=== PATIENT | female | born 1960 | race Caucasian/White ===

== ENCOUNTER → 2021-02-02 10:02 | Outpatient (CLI) | payer BC, SELFPAY ==
[2021-02-02 11:51] LABS: Absolute Neutrophil Count 2.6 X10^3/uL (2.0-7.7); Basophil# 0.05 X10^3/uL; Basophil% 0.9 % (0-1); Eosinophil# 0.12 X10^3/uL; Eosinophils% 2.2 % (0-5); Hemoglobin 13.6 g/dL (12.0-15.0); Lymphocyte % 38.5 % (19-41); Mean Corp Hgb Conc 32.4 g/dL (32-36); Mean Corpuscular Hgb 29.8 pg (27.0-32.0); Mean Corpuscular Volume 91.9 fL (81-99); Mean Platelet Vol. 12.2 fl (6.2-12.0); Monocyte# 0.58 X10^3/uL; Monocyte% 10.6 % (0-10); NRBC Flagged by Analyzer 0 % (0-5); Neutrophil % 47.6 % (47-70); Platelet Count 230 K/mm3 (150-450); RBC Distribution Width CV 12.4 % (11.6-14.6); RBC Distribution Width SD 42.1 fl (35.1-43.9); Red Blood Count 4.57 M/mm3 (4.2-5.4); White Blood Count 5.5 K/mm3 (4.4-11.0)
[2021-02-02 12:18] LABS: Anion Gap 5 (5-15); BUN 18 mg/dL (7-18); BUN/Creat Ratio 19.7 RATIO (10-20); Calcium,Total 9.5 mg/dL (8.5-10.1); Chloride 109 mmol/L (98-107); Cholesterol 184 mg/dL (200); Creatinine, Serum 0.92 mg/dL (0.55-1.02); EST Glomerular Filtration Rate 67 mL/min (>60); Est Glom Filt Rate - Afr Amer 81 mL/min (>60); Glucose 100 mg/dL (74-106); High Density Lipoprotein 59 mg/dL; Potassium 4.4 mmol/L (3.5-5.1); Sodium Level 139 mmol/L (136-145); Triglycerides 122 mg/dL; Very Low Density Lipoprotein 24 mg/dL (5-40)
[2021-02-02 12:28] LABS: Valproic Acid (Depakene) Level 77 ug/mL (50-100)
[2021-02-02 12:29] LABS: Vitamin D,25 Hydroxy 50.2 ng/mL
== END ==
PROVIDERS: PCP Family Medicine; Referring Provider Family Medicine; Visit Provider Family Medicine
DX: Z00.00 Encounter for general adult medical examination without abnormal findings (principal); G40.909 Epilepsy, unspecified, not intractable, without status epilepticus
CPT/HCPCS: 36415; 80048; 80061; 80164; 82306; 84443; 85025

== ENCOUNTER → 2021-03-15 16:27 | Outpatient (CLI) | payer BC, SELFPAY ==
[2021-03-15 14:33] VITALS: BMI 24.3
[2021-03-22 11:00] LABS: HPV APTIMA, High Risk Negative (Negative)
== END ==
PROVIDERS: PCP Family Medicine; Referring Provider Obstetrics & Gynecology; Visit Provider Obstetrics & Gynecology
DX: Z12.4 Encounter for screening for malignant neoplasm of cervix (principal)
CPT/HCPCS: 87624; 88175; G0145

== ENCOUNTER → 2021-07-09 15:59 | Outpatient (CLI) | payer BC, SELFPAY ==
[2021-07-09 18:09] LABS: Thyroid Stim Hormone (TSH) 5.29 uIU/mL (0.358-3.74)
== END ==
PROVIDERS: PCP Family Medicine; Visit Provider Family Medicine
DX: E03.9 Hypothyroidism, unspecified (principal)
CPT/HCPCS: 36415; 84443

== ENCOUNTER → 2022-03-05 | Outpatient (CLI) | payer BC, SELFPAY ==
[2022-03-05 18:13] LABS: Absolute Lymphocyte Count 2.35 X10^3/uL (0.83-4.51); Absolute Neutrophil Count 2.4 X10^3/uL (2.0-7.7); Basophil# 0.05 X10^3/uL; Basophil% 0.9 % (0-1); Eosinophils% 1.8 % (0-5); Hematocrit 37.5 % (37-47); Hemoglobin 12.5 g/dL (12.0-15.0); Lymphocyte # 2.35 X10^3/ul (0.83-4.51); Lymphocyte % 41.4 % (19-41); Mean Corp Hgb Conc 33.3 g/dL (32-36); Mean Corpuscular Volume 89.9 fL (81-99); Monocyte# 0.76 X10^3/uL; Monocyte% 13.4 % (0-10); NRBC Flagged by Analyzer 0 % (0-5); Neutrophil # 2.39 X10^3/uL (2.7-7.7); Neutrophil % 42.1 % (47-70); Platelet Count 160 K/mm3 (150-450); RBC Distribution Width CV 12.7 % (11.6-14.6); RBC Distribution Width SD 41.9 fl (35.1-43.9); Red Blood Count 4.17 M/mm3 (4.2-5.4); White Blood Count 5.7 K/mm3 (4.4-11.0)
[2022-03-05 18:27] LABS: Valproic Acid (Depakene) Level 54 ug/mL (50-100)
[2022-03-05 18:48] LABS: ALB/GLOB Ratio 0.9 RATIO (0.9-2.4); AST(SGOT) 16 U/L (15-37); Alanine Aminotransfer ALT/SGPT 14 U/L (13-56); Albumin, Serum 3.2 g/dL (3.2-5.0); Alkaline Phosphatase 67 U/L (45-117); Anion Gap 9 (5-15); BUN 26 mg/dL (7-18); BUN/Creat Ratio 23.2 RATIO (10-20); Calcium,Total 9.1 mg/dL (8.5-10.1); Chloride 105 mmol/L (98-107); Creatinine, Serum 1.12 mg/dL (0.55-1.02); EST Glomerular Filtration Rate 53 mL/min (>60); Est Glom Filt Rate - Afr Amer 64 mL/min (>60); Free T3 2.2 pg/mL (2.18-3.98); Globulin 3.6 g/dL (2.2-4.2); Glucose 85 mg/dL (74-106); Potassium 3.8 mmol/L (3.5-5.1); Protein, Total 6.8 g/dL (6.4-8.2); Sodium Level 139 mmol/L (136-145); Thyroid Stim Hormone (TSH) 2.91 uIU/mL (0.358-3.74)
== END | disposition home or self-care (01) ==
LOC: MTLAB 15:04
PROVIDERS: PCP Family Medicine; Referring Provider Family Medicine; Visit Provider Family Medicine
DX: E03.9 Hypothyroidism, unspecified (principal); Z51.81 Encounter for therapeutic drug level monitoring
CPT/HCPCS: 36415; 80053; 80164; 84439; 84443; 84481; 85025

== ENCOUNTER → 2022-04-29 | Outpatient (CLI) | payer BC, SELFPAY ==
--- NOTE | 2022-04-29 15:30 | RAD_ITS ---
STUDY: X-RAY - ABDOMEN/PELVIS REASON FOR EXAM: Female, 62 years old. PAIN,BLOATING TECHNIQUE: Single AP view of the abdomen / pelvis. COMPARISON: None. FINDINGS: Normal visualized lung bases. There is an unremarkable bowel gas pattern. The visualized liver, spleen and kidneys are grossly normal in size and morphology. Normal soft tissue structures. Normal visualized osseous structures. RAD/Abdomen Single View IMPRESSION: Normal x-ray examination of the abdomen and pelvis. Electronically Signed: Augustine Long MD at 15:55 EDT ,
[2022-04-29 18:06] LABS: Absolute Lymphocyte Count 2.14 X10^3/uL (0.83-4.51); Absolute Neutrophil Count 2.6 X10^3/uL (2.0-7.7); Basophil# 0.04 X10^3/uL; Basophil% 0.7 % (0-1); Eosinophils% 1.8 % (0-5); Hematocrit 39.7 % (37-47); Hemoglobin 12.8 g/dL (12.0-15.0); Lymphocyte # 2.14 X10^3/ul (0.83-4.51); Lymphocyte % 38.4 % (19-41); Mean Corp Hgb Conc 32.2 g/dL (32-36); Mean Corpuscular Hgb 29.6 pg (27.0-32.0); Mean Corpuscular Volume 91.7 fL (81-99); Monocyte# 0.66 X10^3/uL; Monocyte% 11.8 % (0-10); NRBC Flagged by Analyzer 0 % (0-5); Neutrophil # 2.62 X10^3/uL (2.7-7.7); Neutrophil % 47.1 % (47-70); Platelet Count 200 K/mm3 (150-450); RBC Distribution Width CV 12.3 % (11.6-14.6); RBC Distribution Width SD 41.3 fl (35.1-43.9); Red Blood Count 4.33 M/mm3 (4.2-5.4); White Blood Count 5.6 K/mm3 (4.4-11.0)
[2022-04-29 18:44] LABS: ALB/GLOB Ratio 0.8 RATIO (0.9-2.4); AST(SGOT) 17 U/L (15-37); Alanine Aminotransfer ALT/SGPT 18 U/L (13-56); Alkaline Phosphatase 56 U/L (45-117); Anion Gap 7 (5-15); BUN 23 mg/dL (7-18); BUN/Creat Ratio 21.9 RATIO (10-20); CRP < 2.90 mg/L (0.0-3.0); Calcium,Total 9.3 mg/dL (8.5-10.1); Chloride 103 mmol/L (98-107); Creatinine, Serum 1.05 mg/dL (0.55-1.02); EST Glomerular Filtration Rate 57 mL/min (>60); Est Glom Filt Rate - Afr Amer 69 mL/min (>60); Globulin 3.9 g/dL (2.2-4.2); Glucose 82 mg/dL (74-106); Lipase 139 U/L (73-393); Protein, Total 6.9 g/dL (6.4-8.2); Sodium Level 138 mmol/L (136-145)
== END | disposition home or self-care (01) ==
PROVIDERS: PCP Family Medicine; Referring Provider Family Medicine; Visit Provider Family Medicine
DX: R10.9 Unspecified abdominal pain (principal); R14.0 Abdominal distension (gaseous); R19.7 Diarrhea, unspecified; R19.4 Change in bowel habit
CPT/HCPCS: 36415; 74018; 80053; 83690; 85025; 86140

== ENCOUNTER → 2022-06-21 | Outpatient (CLI) | payer BC, SELFPAY ==
--- NOTE | 2022-06-21 14:43 | CT_ITS ---
STUDY: CT ABDOMEN AND PELVIS WITH CONTRAST REASON FOR EXAM: Female, 62 years old. PAIN AND BLOATING RADIATION DOSAGE (If Supplied By Facility): CTDIvol = ( 8.56 ) mGy, DLP = ( 389.87 ) mGycm TECHNIQUE: Transaxial images were obtained from the dome of the diaphragm to the symphysis pubis without oral contrast. Oral and amp; IV Gastrografin and amp; 100mL Isovue-370 was administered. Sagittal and coronal images were reconstructed. Individualized dose optimization techniques were used for this CT. COMPARISON: None. FINDINGS: The visualized lung bases are unremarkable. The visualized portions of the heart are within normal limits. Normal liver. Thick-walled gallbladder without calcified stones.. Normal spleen. Normal pancreas. Normal bilateral adrenal glands. Normal right kidney. Normal left kidney. Normal visualized stomach. Normal small intestine. Normal colon. The appendix is visualized and appears normal. Minor atherosclerotic changes of the aorta.. Normal inferior vena cava. Normal retroperitoneum. There is massive ascites noted throughout the abdomen and pelvis with stranding in the omental fat in the right upper abdomen possibly representing peritoneal carcinomatosis. Normal urinary bladder. There is a very large heterogeneous appearing complex cystic mass in the pelvis sitting above the dome of the bladder measuring approximately 10 x 12 x 9.3 cm which is not contiguous with uterus. The left adnexal region appears unremarkable. Normal abdominal wall. Lumbar spine demonstrates mild degenerative change. 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 Clinical correlation is recommended Electronically Signed: Daniel Kerr MD at 17:42 EDT ,
[2022-06-21 15:10] LABS: CREATININE FINGERSTICK 1.1 mg/dL (0.55-1.02)
== END | disposition home or self-care (01) ==
LOC: CT 14:40
PROVIDERS: PCP Family Medicine; Referring Provider Family Medicine; Visit Provider Family Medicine
DX: R10.9 Unspecified abdominal pain (principal); R14.0 Abdominal distension (gaseous)
CPT/HCPCS: 74177; Q9967

== ENCOUNTER → 2023-08-25 | Outpatient (CLI) | payer BC, SELFPAY ==
[2023-08-25 18:45] LABS: CRP < 2.90 mg/L (0.0-3.0); Free T3 2.7 pg/mL (2.18-3.98); T4 Free Direct 1.32 ng/dL (0.76-1.46)
== END | disposition home or self-care (01) ==
PROVIDERS: PCP Family Medicine; Visit Provider Family Medicine
DX: E03.9 Hypothyroidism, unspecified (principal); M25.50 Pain in unspecified joint
CPT/HCPCS: 36415; 84439; 84443; 84481; 86140

== ENCOUNTER → 2023-09-19 | Outpatient (CLI) | payer BC, SELFPAY ==
--- NOTE | 2023-09-19 16:44 | RAD_ITS ---
INDICATION: pain EXAMINATION/TECHNIQUE: X-RAY - LEFT XR Shoulder Min 2 Views 4 VIEWS COMPARISON: No relevant prior comparison study available FINDINGS: SOFT TISSUES: No soft tissue swelling or gas. No radiopaque foreign body. BONES/JOINTS: No acute fracture or subluxation.. Normal alignment. Minimal degenerative changes of the glenohumeral and acromioclavicular joints.. No sclerotic or destructive changes observed. RAD/Shoulder min 2 Views IMPRESSION: No acute abnormalities.. Minimal degenerative changes of the glenohumeral and AC joint. Electronically Signed: Jose Luis Dougherty MD at 16:54 EST ,
--- OUTSIDE RECORDS SUMMARY | 2023-09-19 17:20 | XMS RPT_ITS | CCD ---
Author Name Unknown Address [address] [facility] [address] [place] [address] Organization [facility] Care Team Providers Care Desktop Support Consultant Name Role Phone Rennyjudi Cristina Lulu Primary Care Provider [phone] Polepoli-De, Nallely Attending Unavailable No, PCP Primary Care Unavailable PROVIDER, UNKNOWN Referring Unavailable Polen-De, Nallely Attending Unavailable No, PCP Primary Care Unavailable PROVIDER, UNKNOWN Referring Unavailable No, PCP Primary Care Unavailable PROVIDER, UNKNOWN Referring Unavailable Polen-De, Nallely Attending Unavailable POLEN-DE, NALLELY JUÁREZ Attending Unavaila ble POLEN-DE, NALLELY JUÁREZ Attending Unavaila ble POLEN-DE, NALLELY JUÁREZ Admitting Unavaila ble POLEN-DE, NALLELY JUÁREZ Attending Unavaila ble GRIFFIN JIMENEZ Referring Unavailable POLEN-DE, NALLELY JUÁREZ Referring Unavaila ble Medications Current Medications Medication Drug Class(es) Dates Sig (Normalized) Sig (Original) dicyclomine hydrochloride 20 mg oral tablet (2 sources) Anticholinergic Start: 04-30-2022 take 1 tablet by mouth four times daily as needed dicyclomine (BENTYL) 20 MG tablet TAKE 1 TABLET BY MOUTH 4 TIMES DAILY 30 MINUTES BEFORE EATING NEEDED 0 04/30/2022 Active levothyroxine sodium 0.075 mg oral tablet (6 sources) l-Thyroxine Start: 06-26-2022 take 1 tablet by mouth once daily levothyroxine (SYNTHROID) 75 MCG tablet TAKE 1 TABLET BY MOUTH ONCE DAILY 0 06/26/2022 Active Completed/Discontinued Medications Medication Drug Class(es) Dates Sig (Normalized) Sig (Original) calcium carbonate 1500 mg / cholecalciferol 200 unt oral tablet (3 sources) Vitamin D Start: 08-14-2007 calcium carbonate/vitamin d3(CALCARB 600 WITH VITAMIN D 600 MG (1,500)-200 UNIT TAB) Take one(1) tablet two(2) times daily. 0 08/14/2007 Active Problems Active Problems Problem Classification Problem Date Documented Da te Episodic/Chronic Anxiety disorders (3 sources) Anxiety; Translations: [Anxiety disorder, unspecified] Onset: 06-27-2012 06-27-2012 Chronic Disorders usually diagnosed in infancy, childhood, or adolescence (3 sources) Tic disorder; Translations: [Tic disorder, unspecified] Onset: 06-27-2012 06-27-2012 Chronic Headache; including migraine (3 sources) Muscular headache ; Translations: [Tension-type headache, unspecified, not intractable] Onset: 11-24-2015 11-24-2015 Chronic Mood disorders (3 sources) Depressive disorder; Translations: [Depression] Onset: 06-27-2012 06-27-2012 Chronic Osteoarthritis (3 sources) Degenerative joint disease of hand; Translations: [Unilateral primary osteoarthritis of first carpometacarpal joint, left hand] Onset: 02-18-2020 02-18-2020 Chronic Other gastrointestinal disorders (2 sources) Pelvic mass; Translations: [Intra-abdominal and pelvic swelling, mass and lump, unspecified site] Episodic Other gastrointestinal disorders (4 sources) Intra-abdominal and pelvic swelling, mass and lump, unspecified site; Translations: [Intra-abd and pelvic swelling, mass and lump, unsp site] Onset: 07-01-2022 Episodic Other gastrointestinal disorders (2 sources) Other ascites; Translations: [Other ascites] Onset: 07-17-2022 Episodic Other nervous system disorders (2 sources) Other acute postprocedural pain; Translations: [Other acute postprocedural pain] Onset: 07-24-2022 Episodic Secondary malignancies (4 sources) Malignant ascites; Translations: [Malignant ascites] Onset: 07-01-2022 Chronic Spondylosis; intervertebral disc disorders; other back problems (3 sources) Degeneration of lumbar intervertebral disc; Translations: [Other intervertebral disc degeneration, lumbar region] Onset: 02-18-2020 02-18-2020 Chronic Unclassified (2 sources) Post-op Visit; Translations: [Post-op Visit] Onset: 08-12-2022 Past or Other Problems Problem Classification Problem Date Documented Da te Episodic/Chronic Epilepsy; convulsions (3 sources) Seizure; Translations: [Unspecified convulsions] Onset: 12-16-2006 09-22-2015 Episodic Other aftercare (3 sources) Drug therapy finding; Translations: [Encounter for therapeutic drug level monitoring] Onset: 09-10-2016 09-10-2016 Episodic Other eye disorders (3 sources) Pterygium; 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] Onset: 11-24-2015 11-24-2015 Episodic Viral infection (3 sources) Condyloma acuminatum of the anogenital region; Translations: [Anogenital (venereal) warts] Onset: 03-16-2014 03-16-2014 Episodic Results Test Name Value Interpretation Reference Range Facil ity Vital Signs Date Time Vital Sign Value Performing Clinician Faci lity 07-01-2022 14:16-0400 Diastolic blood pressure 88 mm[Hg] Nallely Cowart MD Work Phone: [facility] 07-01-2022 14:16-0400 Heart rate 86 /min Nallely Cowart MD Work Phone: [facility] 07-01-2022 14:16-0400 SaO2% (BldA) [Mass fraction] 100 % Nallely Cowart MD Work Phone: [facility] 07-01-2022 14:16-0400 Systolic blood pressure 124 mm[Hg] Nallely rollins MD Work Phone: [facility] Encounters Encounter Date Encounter Type Care Provider Facility Start: 08-12-2022 End: 08-12-2022 ambulatory NALLELY FRANCKPoli EVANSJUANY [facility] Start: 07-24-2022 End: 07-25-2022 Evaluation and management of inpatient NALLELY FRANCKPoli EVANSJUANY [facility] Start: 07-23-2022 End: 07-23-2022 ambulatory NALLELYEDYTA EVANSJUANY [facility] Start: 07-17-2022 End: 07-18-2022 ambulatory GRIFFIN JIMENEZ [facility] Start: 07-05-2022 ambulatory PCP [facility] Start: 07-03-2022 Manual pelvic examination Sadi Lulu Reyna DO Work Phone: Hematology/Oncology Procedures Date Procedure Procedure Detail Performing Clinician Start: 07-01-2022 US PARACENTESIS INITIAL Nallely Polen-De MD Work Phone: Start: 07-01-2022 Comprehensive metabo lic panel Nallely Cowart MD Work Phone: Start: 07-01-2022 Immunoassay tumor an tigen quantitative ca 125 aNllely Cowart MD Work Phone: Start: 03-17-2019 Mammography Sadi Espinozadiana DO Work Phone: Start: 08-22-2017 Colonoscopy Sadi Reyna DO Work Phone: Plan of Treatment Date Care Activity Detail Author Start: 01-28-2023 DIABETES SCREEN DIABETES SCREEN [facility] Start: 07-08-2022 End: 09-07-2022 Cancer Ag 125 [Units/volume] in Serum or Plasma CA 125 BLD Lab Routine Pelvic mass in female Expected: 07/08/2022, Expires: 09/07/2022 [facility] Work Phone: Immunizations Immunization Date Immunization Notes Care Provider Fa [facility] 05-09-2020 influenza, seasonal, injectable Sadi Reyna DO Work Phone: [facility] 06-20-2018 influenza, seasonal, injectable Sadi Reyna DO Work Phone: [facility] 06-18-2012 influenza virus vacc ine, unspecified formulation Sadi Reyna DO Work Phone: [facility] Payers Date Payer Category Payer Unknown [id number] 2019 Unknown [id number] 1960 Unknown [id number] 1960 Unknown [id number] 1960 Unknown [id number] Social History Date Type Detail Facility Start: 07-01-2022 Tobacco smoking stat [facility] Never smoked tobacco [employer] Work Phone: Start: 03-17-2019 End: 07-01-2022 Tobacco use and exposure Smokeless tobacco non-user [facility] Phone: Start: 12-15-2020 End: 07-01-2022 Alcohol intake Current drinker of alcohol (finding) [employer] Work Phone: Start: 1960 Sex Assigned At Not on file [employer] Work Phone: Start: 03-17-2019 Tobacco smoking stat [facility] Ex-smoker [facility] End: 07-29-2018 History of tobacco use Current smoker [facility] End: 07-29-2018 History of tobacco use Cigarette Smoker [facility] Start: 03-17-2019 End: 12-15-2020 Cigarettes smoked current (pack per day) - Reported 0.5 [facility] Start: 09-06-2009 Tobacco Comment One-Half to Three-Fourths Pack Per Day [facility] Start: 06-27-2012 Alcohol Comment seldom [facility] Start: 06-04-2022 End: 06-14-2022 Exposure to SARS-CoV-2 (event) Not sure [facility] Clinical Notes 11-24-2015 to 07-24-2022 Telephone Encounter - Kayla Estrada [facility] - 07/04/2022 10:37 AM EDTTelephone Encounter - Xochitl Polanco [facility] - 07/04/2022 8:30 AM EDTTelephone Encounter - Sadi Reyna DO - 07/03/2022 5:09 PM EDT Note Date & Type Note Facility 07-24-2022 Note Patient: Roscoe doty Procedure Summary Date: 07/24/22 Room / Location: [place] [address] [facility] Operating Room Anesthesia Start: 1309 Anesthesia Stop: 1533 Procedures: DIAGNOSTIC LAPARASCOPY (Abdomen) TOTAL ABDOMINAL HYSTERECTOMY, BILATERAL SALPINGO-OOPHECTOMY, OMENTECTOMY (Abdomen) Diagnosis: Intra-abdominal and pelvic swelling, mass and lump, unspecified site Malignant ascites (Intra-abdominal and pelvic swelling, mass and lump, unspecified site [R19.00]) (Malignant ascites [R18.0]) Surgeons: Nallely Cowart MD Responsible Provider: Julian Martinez MD Anesthesia Type: general anesthesia, regional ASA Status: 3 Anesthesia Type: general anesthesia, regional Vitals Value Taken Time BP 127/88 07/24/22 1530 Temp 97.8 07/24/22 1534 Pulse 82 07/24/22 1533 Resp 17 07/24/22 1533 SpO2 100 % 07/24/22 153 Vitals shown include unvalidated device data. Anesthesia Post Evaluation Patient location during evaluation: PACU Patient participation: complete - patient participated Level of consciousness: awake and alert Pain management: satisfactory to patient Airway patency: patent Dental Injury: no Cardiovascular status: acceptable, blood pressure returned to baseline and hemodynamically stable Respiratory status: acceptable and spontaneous ventilation Hydration status: euvolemic Nausea/Vomiting: controlled No notable events documented. Patient can be discharged once all PACU criteria has been met. [facility] 07-24-2022 Note Patient: Roscoe doty Procedure Summary Date: 07/24/22 Room / Location: [address] Operating Room Anesthesia Start: 1309 Anesthesia Stop: 1533 Procedures: DIAGNOSTIC LAPARASCOPY (Abdomen) TOTAL ABDOMINAL HYSTERECTOMY, BILATERAL SALPINGO-OOPHECTOMY, OMENTECTOMY (Abdomen) Diagnosis: Intra-abdominal and pelvic swelling, mass and lump, unspecified site Malignant ascites (Intra-abdominal and pelvic swelling, mass and lump, unspecified site [R19.00]) (Malignant ascites [R18.0]) Surgeons: Nallely Cowart MD Responsible Provider: Julian Martinez MD Anesthesia Type: general anesthesia, regional ASA Status: 3 Anesthesia Type: general anesthesia, regional Vitals Value Taken Time BP 127/88 07/24/22 1530 Temp 97.8 07/24/22 1533 Pulse 83 07/24/22 1532 Resp 18 07/24/22 1532 SpO2 100 % 07/24/22 1532 Vitals shown include unvalidated device data. Anesthesia Post Evaluation Patient location during evaluation: PACU Patient participation: complete - patient participated Level of consciousness: awake and alert Pain management: satisfactory to patient Multimodal analgesia pain management approach Airway patency: patent Cardiovascular status: acceptable and hemodynamically stable Respiratory status: acceptable and face mask Hydration status: acceptable No notable events documented. MIPS #[id number] PONV Patient received an inhalational anesthetic (4554F) Patient exhibits three or more risk factors for PONV (4556F) Patient received at leaset 2 prophylactic Rx PONV anti-emtic agents of different classes preop and/or intraop (G9775) MIPS # 424 Perioperative Temperature Management Anesthesia time was 60 minutes or longer (4255F) Anesthesai administered was General (inhalational or TIVA) or Neuraxial block At least one body temperature greater than 95.8F/35.5C achieved within the 30 mins immediately prior to or the 15 minutes immediately following anesthesia end time MIPS #477 Multimodal Pain Management Not emergent case Patientw was administered multimodal pain management (two or more drugs and/or interventions excluding systemic opioids) in the periopeartive period occurring at some time between 6 hours prior to anesthesia start time until discharged from PACU (G2148) I completed my handoff to the receiving clinician during which we: 1. Identified the patient 2. Identified the responsible provider 3. Reviewed the pertinent medical history 4. Discussed the surgical course 5. Reviewed intra-op anesthesia management and issues during anesthesia 6. Set expectations for post-procedure period 7. Allowed opportunity for questions and acknowledgement of understanding. [facility] 07-19-2022 Note Patient: Roscoe doty Procedure Information Date/Time: 07/24/22 1300 Procedures: DIAGNOSTIC LAPARASCOPY WITH BIOPSY OF OMENTAL AND POSSIBLE DEBULKING (Abdomen) RESECTION RECURRENT OVARIAN TUBAL PERITONEAL UTERINE MALIGNANCY WITH OMENTECTOMY PELVIC LYMPHADENECTOMY (Abdomen) Location: [facility] OR [address] [place] [address] Operating Room Surgeons: Nallely Cowart MD Relevant Problems No relevant active problems Past Medical History: Past Medical History: No date: Arthritis No date: H/O emotional problems No date: PCOS (polycystic ovarian syndrome) No date: Seizures (CMS/HCC) (HCC) No date: Thyroid disease Past Surgical History: Past Surgical History: 07/17/2022: CT GUIDED PERCUTANEOUS BIOPSY ABDOMEN OR RETROPERITONEUM Comment: CT GUIDED PERCUTANEOUS BIOPSY ABDOMEN OR RETROPERITONEUM [facility] CT IMAGING No date: LASIK 07/17/2022: US GUIDED ABDOMINAL PARACENTESIS Comment: US GUIDED ABDOMINAL PARACENTESIS 07/17/2022 [facility] US IMAGING Social History: TOBACCO: reports that she has never smoked. She has never used smokeless tobacco. ETOH: reports current alcohol use. Social History Substance and Sexual Activity Drug Use Never Family History: No family history on file. Screening: unknown Clinical information reviewed: Physical Exam Airway Mallampati: unable to assess Cardiovascular Dental Pulmonary Abdominal Anesthesia Plan ASA 3 general anesthesia and regional (No prior GA) The patient is not a current smoker. Patient is NPO: no PAT. General ERAS RASHIDA Screening Labs: Lab Results Component Value Date WBC 5.9 07/01/2022 HGB 13.5 07/01/2022 MCV 89.7 07/01/2022 Lab Results Component Value Date NA 138 07/01/2022 K 4.1 07/01/2022 CL 108 (H) 07/01/2022 CO2 26 07/01/2022 BUN 21 (H) 07/01/2022 CREATININE 0.99 07/01/2022 GLUCOSE 88 07/01/2022 CALCIUM 9.7 07/01/2022 PROT 7.3 07/01/2022 ALKPHOS 55 07/01/2022 AST 25 07/01/2022 No components found for: LVEF, LVEFMODE No echocardiogram results found for the past 14 days No results found for this or any previous visit. [facility] 07-18-2022 Note Called patient to soha blanchard treatment plan. Was unable to have CT guided biopsy yesterday as no omental lesion was identified on CT. Discussed need for diagnosis and plan for dx laparoscopy, possible debulking next week. Patient was frustrated and confused, discussed plan to meet in clinic on Fri and plan for surgery Fri so that we can discuss further. Nallely Cowart MD [facility] 07-17-2022 Note IVR History & Physic al Inpatient consult to Anesthesiology Consult performed by: Bhavana Corbin APRN - RESIDENTIAL BUILDER Consult ordered by: Kumar Persaud MD Name: Roscoe Murcia : 1960 (Age-62 y.o.) Date of Service: Pt seen/examined on 07/17/2022 Chief Complaint: Abdominal pain, mass History Of Present Illness: We are asked to see/evaluate Roscoe Murcia, a 62 y.o. female for pre-procedure evaluation prior to CT PERCUTANEOUS BX RETROPERITONEUM. Roscoe Murcia presents with c/o abdominal/pelvic mass, pain, and bloating x4-5 weeks. Diagnostics revealed evidence of large pelvic mass, omental mass, significant ascites, and appearance of tethering of small intestine. On 07/01/22, she underwent an US guided paracentesis where 1.7L of serous fluid was removed --> no malignant cells identified in cytology report. She is followed by Dr. Cowart and is here today for the above procedure. Past Medical History: Past Medical History: Diagnosis Date Arthritis H/O emotional problems PCOS (polycystic ovarian syndrome) Seizures (CMS/HCC) (HCC) Thyroid disease Past Surgical History: Past Surgical History: Procedure Laterality Date LASIK Medications Prior to Admission: Prior to Admission medications Medication Sig Start Date End Date Taking? Authorizing Provider calcium citrate-vitamin D 250-100 MG-UNIT tablet Take 1 tablet by mouth in the morning and 1 tablet before bedtime. Yes Historical Provider, levothyroxine (Synthroid, Levoxyl) 75 MCG tablet Take 75 mcg by mouth in the morning. 06/26/22 Yes Historical Provider, potassium chloride CR (Klor-Con M10) 10 MEQ ER tablet Take 10 mEq by mouth in the morning. Do not crush or chew. . Yes Historical Provider, valproic acid (Depakene) 250 MG capsule TAKE 2 CAPSULES BY MOUTH IN THE MORNING AND 1 CAPSULE AT BEDTIME 06/26/22 Yes Historical Provider, ANTICOAGULATION: No CHRONIC STEROID USE: No Allergies: Patient has no known allergies. Social History: TOBACCO: reports that she has never smoked. She has never used smokeless tobacco. ETOH: reports current alcohol use. Social History Substance and Sexual Activity Drug Use Never Family History: No family history on file. REVIEW OF SYSTEMS: Review of Systems Constitutional: Negative for chills and fever. HENT: Negative for trouble swallowing. Eyes: Negative for visual disturbance. Respiratory: Positive for cough. Negative for shortness of breath and wheezing. Cardiovascular: Negative for chest pain and palpitations. Gastrointestinal: Positive for abdominal distention, abdominal pain and diarrhea. Negative for blood in stool. Genitourinary: Negative for difficulty urinating and hematuria. Musculoskeletal: Negative for back pain. Skin: Negative for color change. Neurological: Negative for dizziness and light-headedness. Psychiatric/Behavioral: Negative for agitation and confusion. PHYSICAL EXAM: Vitals: BP 115/76 Pulse 83 Temp 36.8 ?C (98.2 ?F) (Temporal) Resp 16 Ht 1.575 m (5' 2 ) Wt 49.9 kg (110 lb) SpO2 98% BMI 20.12 kg/m? BMI Classification: Normal Weight (BMI 18.5-24.9) Physical Exam Vitals and nursing note reviewed. HENT: Head: Normocephalic. Eyes: Extraocular Movements: Extraocular movements intact. Cardiovascular: Rate and Rhythm: Normal rate and regular rhythm. Pulses: Normal pulses. Heart sounds: Normal heart sounds. No murmur heard. No gallop. Pulmonary: Effort: Pulmonary effort is normal. No respiratory distress. Breath sounds: Normal breath sounds. No wheezing or rales. Abdominal: General: There is distension. Musculoskeletal: Cervical back: Normal range of motion. Right lower leg: No edema. Left lower leg: No edema. Skin: General: Skin is warm and dry. Neurological: Mental Status: She is alert and oriented to person, place, and time. Psychiatric: Mood and Affect: Mood normal. Behavior: Behavior normal. Labs: Lab Results Component Value Date WBC 5.9 07/01/2022 HGB 13.5 07/01/2022 MCV 89.7 07/01/2022 Lab Results Component Value Date NA 138 07/01/2022 K 4.1 07/01/2022 CL 108 (H) 07/01/2022 CO2 26 07/01/2022 BUN 21 (H) 07/01/2022 CREATININE 0.99 07/01/2022 GLUCOSE 88 07/01/2022 CALCIUM 9.7 07/01/2022 PROT 7.3 07/01/2022 BILITOT 0.7 07/01/2022 ALKPHOS 55 07/01/2022 AST 25 07/01/2022 EKG: none on file ECHO and EF: No components found for: LVEF, LVEFMODE ASSESSMENT/PLAN: Patient is considered low/intermediate risk for this low risk procedure/surgery with no reducible risk factors. Based on the above evaluation, the benefits of the planned procedure likely exceed the risks. The patient is medically optimized to proceed with the planned procedure without any further cardiopulmonary testing. 1) Intra-abdominal and pelvic swelling, Mass and lump, Malignant ascites - followed by Dr. Evans-Juany - s/p paracentesis 07/01/22, 1.7L fluid removed - concern for ov (more content not included)... [facility] 07-04-2022 Miscellaneous Notes Patient calling stating she is positive for Covid. Appointment moved to 07/12. Lab cancelled and appointment changed to 07/11 next at 1010am She may cancel the lab visit, but please move appointment to next at 10:10 am since she won't be having biopsy until 07/05. Sadi Reyna DO Records received from Dr. Cowart. Patient had CBC/CMP/CEA/CA 125/CA 19-9 07/01/2022. We did not receive the CA 19-9 results. I requested those. Records placed in Dr. Reyna's mailbox. Okay to cancel lab appointment? Mira Dasilva LPN Patient is calling as she had CBC W auto diff, CA 125 , CEA , Cancer antigen 19-9, CMP completed at [facility] ordered by Dr Nallely Cowart on 07/01/2022. She is asking if you would call their office and request those records and cancel her lab visit here.their office number is [phone] documented in this encounter [facility] 07-02-2022 Miscellaneous Notes Records requested from Dr. Cowart. Mira Dasilva LPN That is fine with me but lets get records from that surgeon. Sadi Reyna DO Spoke with patient and scheduled with Dr. Reyna as directed. Dr. Reyna - Dr. Mistry already [facility] and patient has met with her and wishes to stay with her. Berta Hawley New patient referral given to nursing to work up. They will give to Dr. Reyna for review. DX: Pelvic Mass Referring: Dr. Cristina Mistry documented in this encounter [facility] 07-01-2022 Hospital Discharg e rolando Lakhani RN - 07/01/2022 2:13 PM EDT If you have any questions or problems following your test, please call: For [facility] : [phone] (7AM - 4PM) or For Printer: [phone] (8AM - 3 PM) or after 4PM call [phone] and ask for the angiography radiologist concrete mixing plant superintendent The following attachments cannot be sent through Care Everywhere.Paracentesis: General Info (Bahamian)documented in this encounter [facility] Work Phone: 09-28-2021 Note HNO ID: [id number] Author: Gary Swain MA Service: ? Author Type: Script Manager Type: Progress Notes Filed: 09/28/2021 2:04 PM Note Text: POPULATION HEALTH NAVIGATION OUTREACH Action/FYI PCP OFF BOARDING OUTREACH Attempt # 1 LMOVM Attempt # 2 Sent FAMOCO Message. Encounter closed. Pt identified by name and : NO Outreach Outcome/Action Unable to reach patient: Left message MyChart message sent Reason for Outreach Attribution: Provider Off-boarding Payer: Payor: ANTHEM / Plan: BLUE CARD PPO OOS / Product Type: PPO / Care Gap Reviewed:: Breast Cancer screening Colorectal Cancer Screening Flu vaccine Reminder: Reminder note to check Health Maintenance for items below Health Maintenance items due: COVID-19 VACCINE(1) Never done HEPATITIS C SCREENING Never done HIV SCREENING Never done DTAP,TDAP,TD(1 - Tdap) Never done SHINGRIX VACCINE(1 of 2) Never done COLORECTAL CANCER SCREENING due on 08/22/2018 MAMMOGRAM due on 03/17/2020 LIPID SCREEN due on 09/29/2020 PAP TESTING due on 03/15/2021 HPV TESTING due on 03/15/2021 INFLUENZA(1) due on 05/09/2021 Message Sent to Practice: NO Navigation Signature: Gary Swain MA September 28, 2021 1:40 PM [facility] 09-27-2021 Note Patient Outreach (NE TNAV) ROSCOE MURCIA ([id number]) 1960 F Date Time Provider Department 09/27/21 GARY SWAIN During your visit today, we recorded the following information about you: Gary Swain MA 09/28/2021 2:04 PM Signed POPULATION HEALTH NAVIGATION OUTREACH Action/FYI PCP OFF BOARDING OUTREACH Attempt # 1 LMOVM Attempt # 2 Sent EnglishUphart Message. Encounter closed. Pt identified by name and : NO Outreach Outcome/Action Unable to reach patient: Left message MyChart message sent Reason for Outreach Attribution: Provider Off-boarding Payer: Payor: FREDRICKEM / Plan: BLUE CARD PPO OOS / Product Type: PPO / Care Gap Reviewed:: Breast Cancer screening Colorectal Cancer Screening Flu vaccine Reminder: Reminder note to check Health Maintenance for items below Health Maintenance items due: COVID-19 VACCINE(1) Never done HEPATITIS C SCREENING Never done HIV SCREENING Never done DTAP,TDAP,TD(1 - Tdap) Never done SHINGRIX VACCINE(1 of 2) Never done COLORECTAL CANCER SCREENING due on 08/22/2018 MAMMOGRAM due on 03/17/2020 LIPID SCREEN due on 09/29/2020 PAP TESTING due on 03/15/2021 HPV TESTING due on 03/15/2021 INFLUENZA(1) due on 05/09/2021 Message Sent to Practice: NO Navigation Signature: Gary Swain MA September 28, 2021 1:40 PM Allergies As of Date: 09/27/2021 (No Known Allergies) Date Reviewed: 12/15/2020 Reviewed by: Lilly Vazquez RN - Fully Assessed Reason for Visit: Population Health Navigation Outreach [3910] Cmt: Offboarding - Dr Earl NICK Prescriptions as of 09/28/2021 - TURMERIC ORAL Take 1,500 mg by mouth once daily. - valproic acid (DEPAKENE) 250 mg capsule Take 1 capsule in the morning and 2 capsules in the eveningjscript:void(0) - POTASSIUM ORAL Take 99 mg by mouth once daily. - calcium carbonate/vitamin d3(CALCARB 600 WITH VITAMIN D 600 MG (1,500)-200 UNIT TAB) Take one(1) tablet two(2) times daily. 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] 11/24/2015 Encounter for monitoring anticonvulsant therapy*09/10/2016 DDD (degenerative disc disease), lumbar [M51.36]02/18/2020 Degenerative arthritis of thumb, 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] 02/18/2020 Encounter Status:Closed by GARY SWAIN on 09/28/21 [facility] documented as of this encounter (statuses as of 07/02/2022) [facility] History of Past illness Narrative* Problem Noted Date Resolved Date Moderate episode of recurrent major depressive d isorder 11/24/2015 08/22/2017 Positional vertigo 04/23/2011 01/23/2012 Tobacco use disorder 12/12/2007 12/20/2019 Sprain and strain of unspeci fied site of shoulder and upper arm 08/25/2007 10/22/2014 Lateral epicondylitis of elbow 08/25/2007 0 10/22/2014 documented as of this encounter (statuses as of 07/03/2022) [facility] History of Past illness Narrative* Problem Noted Date Resolved Date Moderate episode of recurrent major depressive d isorder 11/24/2015 08/22/2017 Positional vertigo 04/23/2011 01/23/2012 Tobacco use disorder 12/12/2007 12/20/2019 Sprain and strain of unspeci fied site of shoulder and upper arm 08/25/2007 10/22/2014 Lateral epicondylitis of elbow 08/25/2007 0 10/22/2014 documented as of this encounter (statuses as of 07/04/2022) [facility] Pelvic mass Abdominal or pelvic swelling, mass or lump, unspecified site documented in this encounter [facility] Work Phone: Evaluation note* Diagnosis Pelvic mass in female- Primary Abdominal or pelvic swelling, mass or lump, unspecified site documented in this encounter [facility] Summary Purpose Family History No Family History Records FoundNo Family History Records FoundNo Family History Records Found Advance Directives No Advanced Directives Records FoundNo Advanced Directives Records FoundNo Advanced Directives Records Found Additional Source Comments Care Teams (unrecognized sec tion and content) Desktop Support Consultant Relationship Specialty Start Date End Date Cristina Mistry [address] [place] [id number] PCP - General Family Medicine 06/27/22 Desktop Support Consultant Relationship Specialty Start Date End Date Cristina Mistry DO [address] [place] [address] PCP - General Family Medicine 07/01/22 Desktop Support Consultant Relationship Specialty Start Date End Date Cristina Mistry DO [address] [place] [address] PCP - General Family Medicine 07/01/22 Reason for Visit (unrecogniz ed section and content) Referral ID Status Reason Start Date Expiration Date Visits Re quested Visits Authorized [id number] Closed 07/01/2022 07/01/2023 1 1 Reason Comments New Patient Reason Comments Patient Question Source Comments (unrecognize d section and content) In the event this informatio n is protected by the Federal Confidentiality of Alcohol and Drug Abuse Patient Records regulations: The Federal rules restrict any use of the information to criminally investigate or prosecute any alcohol or drug abuse patient.[facility] the event this information is protected by the Federal Confidentiality of Alcohol and Drug Abuse Patient Records regulations: The Federal rules restrict any use of the information to criminally investigate or prosecute any alcohol or drug abuse patient.[facility] the event this information is protected by the Federal Confidentiality of Alcohol and Drug Abuse Patient Records regulations: The Federal rules restrict any use of the information to criminally investigate or prosecute any alcohol or drug abuse patient.[facility] INFORMATION SOURCE (unrecogn ized section and content) DATE CREATED AUTHOR AUTHOR'S ORGANIZ ATION 07/05/2022 [facility] DATE CREATED AUTHOR AUTHOR'S ORGANIZ ATION 08/12/2022 [facility] FOR RECORDS PERTAINING TO PATIENTS WHO ARE OR HAVE BEEN ENROLLED IN A CHEMICAL DEPENDENCY/SUBSTANCEABUSE PROGRAM, SOME INFORMATION MAY BE OMITTED. This clinical summary was aggregated from multiple sources. Caution should be exercised in using it in the provision of clinical care. This summary normalizes information from multiple sources, and as a consequence, information in this document may materially change the coding, format and clinical context of patient data. In addition, data may be omitted in some cases. CLINICAL DECISIONS SHOULD BE BASED ON THE PRIMARY CLINICAL RECORDS. [employer] [facility] [facility]. provides no warranty or guarantee of the accuracy or completeness of information in this document.
== END | disposition home or self-care (01) ==
LOC: MTRAD 16:42
PROVIDERS: PCP Family Medicine; Referring Provider Family Medicine; Visit Provider Family Medicine
DX: M25.512 Pain in left shoulder (principal)
CPT/HCPCS: 73030

== ENCOUNTER → 2025-03-21 | Outpatient (CLI) | payer BC, SELFPAY ==
[2025-03-21 12:37] LABS: Hematocrit 44.8 % (37-47); Hemoglobin 14.6 g/dL (12.0-15.0); Immature Granulocytes Count 0.010 X10^3/uL (0.0-0.0); Mean Corp Hgb Conc 32.6 g/dL (32-36); Mean Corpuscular Volume 89.6 fL (81-99); Mean Platelet Vol. 12.5 fl (6.2-12.0); NRBC Flagged by Analyzer 0 % (0-5); Platelet Count 226 K/mm3 (150-450); RBC Distribution Width CV 13.2 % (11.6-14.6); RBC Distribution Width SD 43.5 fl (35.1-43.9); Red Blood Count 5.00 M/mm3 (4.2-5.4); White Blood Count 6.3 K/mm3 (4.4-11.0)
[2025-03-21 13:17] LABS: AST(SGOT) 20 U/L (<=31); Alanine Aminotransfer ALT/SGPT 15 U/L (<=34); Albumin, Serum 4.2 g/dL (3.4-4.8); Alkaline Phosphatase 92 U/L (35-104); Anion Gap 11 (5-15); BUN 24 mg/dL (4-19); BUN/Creat Ratio 22.8 RATIO (10-20); Calcium,Total 10.5 mg/dL (7.6-11.0); Carbon Dioxide 24.2 mmol/L (21.0-32.0); Chloride 103 mmol/L (98-108); Free T3 2.5 pg/mL (2.18-3.98); Globulin 3.2 g/dL (2.2-4.2); Glucose 101 mg/dL (70-99); Potassium 4.4 mmol/L (3.3-5.1)
== END | disposition home or self-care (01) ==
LOC: BFHLAB 10:19
PROVIDERS: PCP Family Medicine; Visit Provider Family Medicine
DX: E03.9 Hypothyroidism, unspecified (principal); Z51.81 Encounter for therapeutic drug level monitoring
CPT/HCPCS: 36415; 80053; 84439; 84443; 84481; 85025